=== PATIENT | female | born 1985 | race Caucasian/White ===

== ENCOUNTER → 2019-03-26 | Outpatient (CLI) | payer OTHER ==
--- NOTE | 2019-03-27 11:58 | RAD ---
DATE: 03/26/2019 12:40 PM EXAM: DIGITAL SCREEN BILAT W/CAD HISTORY: Baseline screening COMPARISON: None. Bilateral CC and MLO views of the breasts were performed. This study was interpreted with the benefit of Computerized Aided Detection (CAD). FINDINGS: Breast Density: DENSE The breast Parenchyma is dense, which could reduce the sensitivity of mammography. Breast parenchyma level density D. Focal asymmetry within the right breast 12:00 position approximately 3.1 cm from the nipple with suggestion of architectural distortion, likely overlapping fibroglandular tissue. No suspicious mammographic opacification, mass or architectural distortion within the left breast. The visualized axillae are unremarkable. IMPRESSION: Focal asymmetry within the right breast 12:00 position. Recommend right breast spot CC and MLO compression views. BI-RADS CATEGORY: 0 INCOMPLETE: NEEDS ADDITIONAL IMAGING EVALUATION AND/OR PRIOR MAMMOGRAMS FOR COMPARISON. RECOMMENDED FOLLOW-UP: ADD ADDITIONAL IMAGING The patient will be contacted to return for additional imaging and a supplemental report will follow. PQRS compliance statement: Patient information was entered into a reminder system. Mammography is a sensitive method for finding small breast cancers, but it does not detect them all and is not a substitute for careful clinical examination. A negative mammogram does not negate a clinically suspicious finding and should not result in delay in biopsying a clinically suspicious abnormality. "Our facility is accredited by the [employer] Mammography [employer]."
== END | disposition home or self-care (01) ==
LOC: MAMMO 12:57
PROVIDERS: ATTEND Family Medicine
DX: Z12.31 Encounter for screening mammogram for malignant neoplasm of breast (principal); Z80.3 Family history of malignant neoplasm of breast
CPT/HCPCS: 77067

== ENCOUNTER → 2019-04-01 | Outpatient (CLI) | payer OTHER ==
--- NOTE | 2019-04-01 13:51 | RAD ---
DATE: 04/01/2019. EXAM: DIGITAL DIAGNOSTIC RT, BREAST RIGHT. HISTORY: Density on mammographic screening. Additional imaging is requested. COMPARISON: 03/26/2019. This study was interpreted with the benefit of Computerized Aided Detection (CAD). FINDINGS: Breast Density: DENSE The breast parenchyma is dense, which could reduce the sensitivity of mammography. Breast parenchyma level density D.. The focus of concern superolaterally on the right resolves to a parenchymal density on spot compression. There is no suspicious mammographic finding. Sonography of the right upper outer breast was also performed. This reveals only normal parenchyma and deeper tissues. There is no suspicious sonographic finding. BI-RADS CATEGORY: 1 NEGATIVE. RECOMMENDED FOLLOW-UP: 12M 12 MONTH FOLLOW-UP. PQRS compliance statement: Patient information was entered into a reminder system with a target due date 03/26/2020 for the next mammogram. Mammography is a sensitive method for finding small breast cancers, but it does not detect them all and is not a substitute for careful clinical examination. A negative mammogram does not negate a clinically suspicious finding and should not result in delay in biopsying a clinically suspicious abnormality. "Our facility is accredited by the [employer] Mammography [employer]."
== END | disposition home or self-care (01) ==
LOC: MAMMO 12:10
PROVIDERS: ATTEND Family Medicine
DX: R92.2 Inconclusive mammogram (principal)
CPT/HCPCS: 76641; 77065